=== PATIENT | female | born 1980 | race Caucasian/White ===

== ENCOUNTER 2016-11-03 17:17 | Outpatient (CLI) | payer OTHER ==
[~2016-11-03] VITALS: Ht 157.5 cm; Wt 125.1 kg
[2016-11-03 17:45] VITALS: Ht 157.5 cm; Wt 125.1 kg
[2016-11-03] MEDS ORDERED: PRENAT PO (17:47)
--- NOTE | 2016-11-03 20:53 | RADRPT ---
PROCEDURE: OB ultrasound CLINICAL INDICATION: . OB ultrasound with fluid volume assessment. Rupture of membranes TECHNIQUE: Sonographic evaluation to assess the amniotic fluid volume was performed. Transabdomin al imaging of the gravid uterus was performed. COMPARISON: 10/15/2016 FINDINGS: The amniotic fluid index equals approximately 13.1 cm. heart rate: 148 Beats per minute. Presentation: Breech Placenta posterior without evidence of abruption or previa. IMPRESSION: Amniotic fluid index equals 15.1 cm. Breech presentation. RPTAT: AADD .Sameer Lezama MD, MD Date Time Electronically viewed and signed by .Sameer Lezama MD, MD on 11/03/2016 20:52 .B/
[2016-11-03] MEDS ORDERED: ACETAMINOPHEN 325 MG TAB PO ONE (21:00)
[2016-11-03 21:01] LABS: ADD SCAN DIFF NO
[2016-11-03 21:25] LABS: HEMATOCRIT 36.4 % (37.0-47.0); HEMOGLOBIN 12.7 g/dl (12.0-16.0); MEAN CORPUSCULAR HEMOGLOBIN 29.5 pg (29.0-33.0); MEAN CORPUSCULAR HGB CONC 34.9 g/dl (32.0-37.0); MEAN CORPUSCULAR VOLUME 84.5 fl (82.0-101.0); MEAN PLATELET VOLUME 9.9 fl (7.4-10.4); PLATELET COUNT 240 10^3/UL (140-415); RED BLOOD COUNT 4.31 10^6/ul (4.20-5.40); RED CELL DISTRIBUTION WIDTH 13.1 % (11.5-14.5); WHITE BLOOD COUNT 9.6 10^3/ul (4.8-10.8)
[2016-11-03 22:01] LABS: EOSINOPHILS # 0.1 10^3/ul (0.0-0.5); LYMPHOCYTES # 2.7 10^3/ul (0.8-2.9); MONOCYTE # 0.5 10^3/ul (0.3-0.9); NEUTROPHIL # 6.2 10^3/ul (1.6-7.5)
[2016-11-03 22:02] LABS: PLATELET ESTIMATE PLT APPEAR ADEQUATE
[2016-11-03 22:14] LABS: ADD UMIC YES; URINE BILIRUBIN (Dip) NEGATIVE (NEGATIVE); URINE BLOOD (Dip) 1+ (NEGATIVE); URINE COLOR YELLOW (YELLOW); URINE GLUCOSE (Dip) NEGATIVE (NEGATIVE); URINE KETONES (Dip) TRACE (NEGATIVE); URINE LEUKOCYTE ESTERASE (Dip) TRACE (NEGATIVE); URINE NITRITE (Dip) NEGATIVE (NEGATIVE); URINE TOTAL PROTEIN (Dip) NEGATIVE (NEGATIVE); URINE UROBILINOGEN (Dip) 0.2 E.U./dL (0.1-1.0)
[2016-11-03 22:28] LABS: BACTERIA,URINE RARE; SQUAMOUS EPITHELIAL CELL,UR MODERATE; URIC ACID CRYSTALS,URINE MODERATE; URINE RBCS 0-2 /HPF (0)
--- NOTE | 2016-11-03 23:45 | PN ---
Triage Information Date/Time 11/03/2016 Weeks of Gestation 36-year-old with IUP at 25 weeks and 3 days presented with complaint of abdominal pain. She feels general achy pain in the mid abdomen. Also reports constipation for the past 2 days since abdominal pain started. She reports some leaking of fluid throughout the . She feels that she urinates. She had been tested multiple times and was told that it is not amniotic fluid. She denies any decreased movement or vaginal bleeding. She also complaining of some vaginal discharge with itching : 6 Para: 4 Diabetes: none Hypertention: none Additional information Obese Objective Exam General appearance: Alert and oriented 4 appears to be in mild distress Abdomen: Soft, gravid, fundal height consistent with gestational age. Nontender , no rebound tenderness, no CVA tenderness, no guarding, no rigidity NST: Category 1 Sterile speculum examination: Some whitish vaginal discharge consistent with candidal, no pooling, nitrazine negative, R OM test negative JOZEF: Adequate Results/Medications Result Diagram: 11/03/162049 Results 24 hrs Laboratory Tests Test 11/03/16 19:00 11/03/16 20:40 11/03/16 20:50 Urine Color YELLOW Urine Clarity SLIGHTLY CLOUDY Urine pH 5.5 Urine Specific [place] >=1.030 H Urine Ketones TRACE H Urine Nitrite NEGATIVE Urine Bilirubin NEGATIVE Urine Urobilinogen 0.2 E.U./dL Urine Leukocyte Esterase TRACE H Urine Microscopic RBC 0-2 Urine Microscopic WBC 2-5 Urine Squamous Epithelial Cells MODERATE Urine Uric Acid Crystals MODERATE Urine Bacteria RARE Urine Hemoglobin 1+ H Urine Glucose NEGATIVE Urine Total Protein NEGATIVE Membranes Rupture NEGATIVE White Blood Count 9.6 Red Blood Count 4.31 Hemoglobin 12.7 Hematocrit 36.4 L Mean Corpuscular Volume 84.5 Mean Corpuscular Hemoglobin 29.5 Mean Corpuscular Hemoglobin Concent 34.9 Red Cell Distribution Width 13.1 Platelet Count 240 Mean Platelet Volume 9.9 Neutrophils % 65.0 Band Neutrophils % 1.0 Lymphocytes % 28.0 Monocytes % 5.0 Eosinophils % 1.0 Neutrophils # 6.2 Lymphocytes # 2.7 Monocytes # 0.5 Eosinophils # 0.1 Platelet Estimate PLT APPEAR ADEQUATE Imaging Results PROCEDURE: OB ultrasound CLINICAL INDICATION: . OB ultrasound with fluid volume assessment. Rupture of membranes TECHNIQUE: Sonographic evaluation to assess the amniotic fluid volume was performed. Transabdominal imaging of the gravid uterus was performed. COMPARISON: 10/15/2016 FINDINGS: The amniotic fluid index equals approximately 13.1 cm. heart rate: 148 Beats per minute. Presentation: Breech Placenta posterior without evidence of abruption or previa. IMPRESSION: Amniotic fluid index equals 15.1 cm. Breech presentation. Assessment/Plan IUP at 25 weeks and 3 days Constipation and generalized abdominal pain Likely musculoskeletal versus GI related NST appropriate for gestational age. No contraction the monitor. Vaginal itching and discharge consistent with Michelle No evidence of PPROM DC home Clotrimazole vaginal cream nightly for 7 days labor precaution and kick counts Adequate p.o. hydration Stool softener Follow-up with OB office in a couple days after discharge from the hospital Return to triage as needed recurrence of the symptoms are worsening or any other concern BRIE TIRADO MD Nov 03, 2016 23:45
--- NOTE | 2016-11-04 01:30 | TRIAGE ---
OB Triage Datetime Report Generated by CPN: 11/04/2016 01:29 Datetime: 11/03/2016 20:08 Amniotic Fluid Amount: None Amniotic Fluid Odor: None Pool: Negative Nitrazine: Negative Datetime: 11/03/2016 19:45 Stage of : OB Triage Labor Evaluation Frequency: 0 Monitor Mode: External Pattern: Normal: <= 5 Contractions in 10 Minutes Resting Tone [place]: Relaxed Pain Assessment Pain Scale: 4 Pain Presence: Constant Pain Type: Ache Pain Location: Abdomen Datetime: 11/03/2016 19:14 Stage of : OB Triage Maternal Assessment Level of Consciousness: Fully Conscious Headache: Denies Blurred Vision: No Nausea/Vomiting: Denies RUQ Epigastric Pain: Denies Facial Edema: None Monitor Mode: External Resting Tone [place]: Relaxed Datetime: 11/03/2016 17:48 EGA: 25.3 Datetime: 11/03/2016 17:47 Heart Rate FHR Baseline Rate: 145 Monitor Mode: External US FHR Baseline Changes: No Baseline Change Variability: Moderate 6-25 bpm Accelerations: 15X15 Decelerations: None Category: Category I Pain Assessment Pain Scale: 2 Pain Presence: Intermittent Pain Type: Ache Pain Location: Abdomen Pain Relief Measures: Comfort Measures Datetime: 11/03/2016 17:41 Stage of : OB Triage Assessment Type: Triage Maternal Assessment Level of Consciousness: Fully Conscious DTR's/Clonus: DTRs 2+; No Clonus Headache: Denies Blurred Vision: No Respiratory Effort: Unlabored; Regular Rhythm; Equal Expansion Breath Sounds, Left: Clear and Equal Breath Sounds, Right: Clear and Equal Nausea/Vomiting: Denies RUQ Epigastric Pain: Denies Lower Extremities Edema: Bilateral Lower Extremities Degree: 1+ Upper Extremities Edema: None Degree: None Facial Edema: None Temperature Route: Oral Fall Risk Assessment History of Falling: (0) No Secondary Diagnosis: (0) No Ambulatory Aid: (0) Bedrest/Nurse Assist IV Therapy: (0) No Gait: (0) Normal/Bedrest/Immobile Mental Status: (0) Oriented to Own Ability Fall Score: 0 Fall Risk Score Definition: No Risk: No action required Monitor Mode: External Heart Rate FHR Baseline Rate: 145 Monitor Mode: External US FHR Baseline Changes: No Baseline Change Variability: Moderate 6-25 bpm Accelerations: 15X15 Decelerations: None Category: Category I Pain Presence: None/Denies Vaginal Exam Membrane Status: Intact Datetime: 11/03/2016 17:25 Time of Arrival: 11/03/2016 17:25 Arrived By: Ambulatory Arrived From: Home Chief Complaint: ABD PAIN Movement: Present Contractions: Denies/Absent Rupture of Membranes: Denies Vaginal Bleeding: None Vaginal Discharge: Denies Recent Sexual Intercouse: Denies Abdominal Trauma: Not Applicable Patient Complaints: None Time Provider Notified: 11/03/2016 19:45 Provider Notified: Dr Frank
== END 2016-11-03 22:58 | disposition home or self-care (01) ==
LOC: OBT 17:17 → L-D 17:17 → OBT 22:58
PROVIDERS: ATTEND Obstetrics & Gynecology
DX: O26.892 Other specified pregnancy related conditions, second trimester (principal); R10.9 Unspecified abdominal pain
CPT/HCPCS: 76815; 81001; 84112; 85025; Z7610; G0463

== ENCOUNTER 2017-01-09 12:48 | Outpatient (CLI) | payer OTHER ==
[~2017-01-09] VITALS: Ht 160 cm; Wt 127.1 kg
[~2017-01-09 12:48] MED LIST: PRENAT PO
[2017-01-09 13:09] VITALS: Ht 160 cm; Wt 127.1 kg
[2017-01-09] MEDS ORDERED: FER325 PO (13:09)
[2017-01-09] MEDS ORDERED: GLYB5TAB3 PO (13:09)
[2017-01-09] MEDS ORDERED: GLYB2.5T2 PO (13:09)
[2017-01-09 13:10] VITALS: BP 129/74; PULSE 92; RESP 18
--- NOTE | 2017-01-09 15:44 | RADRPT ---
PROCEDURE: US OB. CLINICAL INDICATION: Contractions TECHNIQUE: Multiple sonographic images of the pelvis were obtained. The images were reviewed on a PACS workstation. COMPARISON: 01/06/2017 FINDINGS: There is a single viable intrauterine gestation. Cardiac activity is present with 05/1943 beats per minute. There is a vertex presentation. Measurements were made in order to determine age. The results are as follows: BPD =9.15 cm HC =32.18 cm AC =32.48 cm FL =7.22 cm. Estimated gestational age of approximately 36 weeks 5 days. The estimated date of delivery is 02/01/2017. The EFW = 2987 g plus or minus 447 g . The placenta is posterior, maternal right and grade 1. There is no evidence for an abruption or plac enta previa. There are no adnexal masses.. IMPRESSION: Single viable intrauterine gestation of approximately 36 weeks 5 days. The estimated date of delive ry is 02/01/2017 . RPTAT: HH .Emelyn Avery MD, MD Date Time Electronically viewed and signed by .Emelyn Avery MD, on 01/09/2017 15:44 .M/
--- NOTE | 2017-01-09 15:45 | RADRPT ---
PROCEDURE: US OB. CLINICAL INDICATION: Contractions TECHNIQUE: Pelvic ultrasound performed for biophysical profile. COMPARISON: None FINDINGS: Single intrauterine gestation present with heart rate at 148 beats per minute. Presentation is ceph alic. Placenta is posterior maternal right, grade 1. Biophysical profile score is 8/8 (breathing=2 , movement=2, tone =2, fluid volume=2). Amniotic fluid volume is within normal limits, with JOZEF = 1 0.6 cm. IMPRESSION: Biophysical profile score 8/8. JOZEF 10.6 cm RPTAT: HSM .Emelyn Avery MD, MD Date Time Electronically viewed and signed by .Emelyn Avery MD, on 01/09/2017 15:45 .M/
--- NOTE | 2017-01-09 16:05 | PN ---
Triage Information Date/Time Reason for visit: Uterine contractions Weeks of Gestation 36+ /Para 6/3 Diabetes: none Hypertention: none Objective Vital Signs Date Time Temp Pulse Resp B/P Pulse Ox O2 Delivery O2 Flow Rate FiO2 01/09/17 13:10 97.8 92 18 129/74 Room Air Heart Rate: 140's Contractions: >10 Minutes Apart Exam L/C/p Assessment/Plan BPP 12/28 No cervical changes -->discharged with precautions --->She is offered to be monitored for a while longer but she preferrs to go home and return in case of increased CTXs EZEQUIEL RUIZ M.D. Jan 09, 2017 16:05
--- NOTE | 2017-01-10 06:25 | TRIAGE ---
OB Triage Datetime Report Generated by CPN: 01/09/2017 16:08 Datetime: 01/09/2017 15:55 Stage of : OB Triage Maternal Assessment Level of Consciousness: Fully Conscious Labor Evaluation Frequency: NONE Monitor Mode: External Resting Tone [place]: Relaxed Heart Rate FHR Baseline Rate: 145 Monitor Mode: External US Variability: Moderate 6-25 bpm Accelerations: 15X15 Decelerations: None Pain Assessment Pain Scale: 7 Pain Presence: Intermittent Pain Type: Cramping Pain Location: Abdomen Pain Goal: 3 Pain Relief Measures: Comfort Measures Membrane Status: Intact Vaginal Bleeding: None Datetime: 01/09/2017 15:22 Vaginal Exam Dilatation (cms): 0.0 Datetime: 01/09/2017 15:00 Stage of : OB Triage Maternal Assessment Level of Consciousness: Fully Conscious Labor Evaluation Frequency: 2uc/hr Monitor Mode: External Duration (sec)2399: 50-70 Quality: Mild Resting Tone [place]: Relaxed Heart Rate FHR Baseline Rate: 145 Monitor Mode: External US Variability: Moderate 6-25 bpm Accelerations: 15X15 Decelerations: None Pain Assessment Pain Scale: 7 Pain Presence: Intermittent Pain Type: Cramping Pain Location: Abdomen Pain Goal: 3 Pain Relief Measures: Comfort Measures Membrane Status: Intact Vaginal Bleeding: None Datetime: 01/09/2017 14:33 Comments: US COMPLETE Datetime: 01/09/2017 14:13 Comments: OFF FOR US Datetime: 01/09/2017 14:10 Stage of : OB Triage Labor Evaluation Frequency: NONE Monitor Mode: External Heart Rate FHR Baseline Rate: 145 Monitor Mode: External US Variability: Moderate 6-25 bpm Accelerations: 15X15 Decelerations: None Category: Category I Membrane Status: Intact Datetime: 01/09/2017 14:00 Stage of : OB Triage Maternal Assessment Level of Consciousness: Fully Conscious Labor Evaluation Frequency: NONE Monitor Mode: External Resting Tone [place]: Relaxed Heart Rate FHR Baseline Rate: 145 Monitor Mode: External US Variability: Moderate 6-25 bpm Accelerations: 15X15 Decelerations: None Category: Category I Pain Assessment Pain Scale: 7 Pain Presence: Intermittent Pain Type: Cramping Pain Location: Abdomen Pain Goal: 3 Pain Relief Measures: Comfort Measures Membrane Status: Intact Vaginal Bleeding: None Datetime: 01/09/2017 13:01 Assessment Type: Triage Maternal Assessment Level of Consciousness: Fully Conscious DTR's/Clonus: DTRs 2+; No Clonus Headache: Denies Blurred Vision: No Respiratory Effort: Unlabored; Regular Rhythm; Equal Expansion Breath Sounds, Left: Clear and Equal Breath Sounds, Right: Clear and Equal Nausea/Vomiting: Denies RUQ Epigastric Pain: Denies Lower Extremities Edema: Bilateral Lower Extremities Degree: 1+ Upper Extremities Edema: None Degree: None Facial Edema: None Fall Risk Assessment History of Falling: (0) No Secondary Diagnosis: (0) No Ambulatory Aid: (0) Bedrest/Nurse Assist IV Therapy: (0) No Gait: (0) Normal/Bedrest/Immobile Mental Status: (0) Oriented to Own Ability Fall Score: 0 Fall Risk Score Definition: No Risk: No action required Datetime: 01/09/2017 13:00 Time of Arrival: 01/09/2017 12:40 EGA: 35.1 Arrived By: Ambulatory Arrived From: Home Chief Complaint: PT HERE C/O UC'S SINCE 0900 Movement: Present Contractions: Irregular Rupture of Membranes: Denies Vaginal Bleeding: None Vaginal Discharge: Denies Recent Sexual Intercouse: Denies Abdominal Trauma: Not Applicable Patient Complaints: Contractions; Cramping; Back Pain Time Provider Notified: 01/09/2017 13:10 Provider Notified: MARIO Initial Plan: NST/EFW/BPP Datetime: 01/09/2017 12:59 Monitor Mode: External Monitor Mode: External US Datetime: 01/03/2017 09:46 EGA: 25.4 Datetime: 11/03/2016 22:51 Stage of : OB Triage Monitor Mode: External Pattern: Normal: <= 5 Contractions in 10 Minutes Resting Tone [place]: Relaxed Pain Presence: None/Denies Pain Type: N/A Datetime: 11/03/2016 22:05 Stage of : OB Triage Labor Evaluation Frequency: 0 Monitor Mode: External Pattern: Normal: <= 5 Contractions in 10 Minutes Resting Tone [place]: Relaxed Pain Assessment Pain Scale: 0 Pain Presence: None/Denies Pain Type: N/A Datetime: 11/03/2016 17:48 EGA: 25.3 Datetime: 11/03/2016 17:41 Fall Score: 0 Fall Risk Score Definition: No Risk: No action required
== END 2017-01-09 16:15 | disposition home or self-care (01) ==
LOC: OBT 12:48 → L-D 12:58 → OBT 16:15
PROVIDERS: ATTEND Obstetrics & Gynecology
DX: O47.1 False labor at or after 37 completed weeks of gestation (principal); O26.893 Other specified pregnancy related conditions, third trimester; R10.9 Unspecified abdominal pain; Z3A.36 36 weeks gestation of pregnancy
CPT/HCPCS: 76815; 76818; Z7500; G0463

== ENCOUNTER 2017-01-19 11:15 | Inpatient (IN) | payer OTHER ==
[~2017-01-19] VITALS: Ht 160 cm; Wt 128.6 kg
[~2017-01-19 11:15] MED LIST changes: +FER325 PO; +GLYB2.5T2 PO; +GLYB5TAB3 PO
[2017-01-19 12:33] VITALS: BP 132/81; PULSE 87; RESP 18; Ht 160 cm; Wt 128.6 kg
[2017-01-19 12:36] LABS: BASOPHILS % 0.3 % (0.0-2.0); EOSINOPHILS # 0.1 10^3/ul (0.0-0.5); EOSINOPHILS % 0.6 % (0.0-7.0); HEMATOCRIT 39.2 % (37.0-47.0); HEMOGLOBIN 13.3 g/dl (12.0-16.0); LYMPHOCYTES # 1.5 10^3/ul (0.8-2.9); LYMPHOCYTES % 15.5 % (15.0-51.0); MEAN CORPUSCULAR HEMOGLOBIN 28.9 pg (29.0-33.0); MEAN CORPUSCULAR HGB CONC 33.9 g/dl (32.0-37.0); MEAN PLATELET VOLUME 9.7 fl (7.4-10.4); MONOCYTE # 0.7 10^3/ul (0.3-0.9); MONOCYTES % 6.7 % (0.0-11.0); NEUTROPHILS % 75.8 % (39.0-77.0); PLATELET COUNT 271 10^3/UL (140-415); RED BLOOD COUNT 4.61 10^6/ul (4.20-5.40); RED CELL DISTRIBUTION WIDTH 13.2 % (11.5-14.5); WHITE BLOOD COUNT 9.7 10^3/ul (4.8-10.8)
[2017-01-19 12:54] LABS: ALBUMIN 3.1 g/dl (3.3-4.9); ALBUMIN/GLOBULIN RATIO 0.93; BILIRUBIN,INDIRECT 0.1 mg/dl (0-1.1); BILIRUBIN,TOTAL 0.1 mg/dl (0.2-1.3); CALCIUM 8.7 mg/dl (8.4-10.2); CREATININE 0.57 mg/dl (0.44-1.00); POTASSIUM 3.9 mmol/L (3.5-5.1); TOTAL PROTEIN 6.4 g/dl (6.1-8.1); URIC ACID 4.6 mg/dl (3.1-7.9)
--- NOTE | 2017-01-19 12:57 | RADRPT ---
PROCEDURE: OB ultrasound for biophysical profile CLINICAL INDICATION: Preeclampsia TECHNIQUE: Multiple sonographic images of the pelvis were obtained. Transabdominal view of the gr avid uterus are available for review. The images were reviewed on a PACS workstation. COMPARISON: OB ultrasound 01/09/2017 FINDINGS: breathing movement = 2/2 tone = 2/2 motion = 2/2 JOZEF = 2/2 JOZEF = 10.3 cm Single live intrauterine with cardiac activity. heart rate equals 144 beats p er minute. Presentation is cephalic. The placenta is posterior grade 1. IMPRESSION: 1. Single viable intrauterine gestation. 2. Biophysical profile = 8/8. 3. JOZEF = 10.3 cm. RPTAT: AA .Wiley Alford MD, MD Date Time Electronically viewed and signed by .Wiley Alford MD, MD on 01/19/2017 12:57 .B/
--- NOTE | 2017-01-19 12:59 | RADRPT ---
PROCEDURE: US OB - Limited weight. CLINICAL INDICATION: Preeclampsia TECHNIQUE: Multiple sonographic images of the pelvis were obtained. Transabdominal imaging only w as performed. The images were reviewed on a PACS workstation. COMPARISON: No prior studies are available for comparison. FINDINGS: There is a single viable intrauterine gestation. Cardiac activity is present with 139 beats per min [place]. There is a cephalic presentation. Measurements were made in order to determine age. The results are as follows: BPD = 8.79 cm HC = 33.53 cm AC = 33.82 cm FL = 6.92 .cm Estimated gestational age of approximately 36 weeks 6 days +/ - 2 weeks 4 days The estimated date of delivery is 02/10/2017. The EFW = 3092 g +/- 464 g (69%). The placenta is anterior. IMPRESSION: 1. Single viable intrauterine gestation of approximately 36 weeks 6 days gestation with estimated d ate of delivery of 02/10/2017 by ultrasound evaluation. 2. The estimated weight is 3092 g (69%) . RPTAT: AA .Wiley Alford MD, MD Date Time Electronically viewed and signed by .Wiley Alford MD, MD on 01/19/2017 12:59 .B/
[2017-01-19 13:34] LABS: ADD UMIC YES; UR ASCORBIC ACID 40 mg/dL (NEGATIVE); UR BACTERIA FEW /HPF (NONE SEEN); UR BILIRUBIN (Dip) NEGATIVE (NEGATIVE); UR BLOOD (Dip) NEGATIVE (NEGATIVE); UR CLARITY SLIGHTLY CLOUDY (CLEAR); UR COLOR YELLOW (YELLOW); UR GLUCOSE (Dip) NEGATIVE (NEGATIVE); UR KETONES (Dip) TRACE mg/dL (NEGATIVE); UR LEUKOCYTE ESTERASE (Dip) 2+ Leu/ul (NEGATIVE); UR MUCUS FEW /HPF (NONE SEEN); UR NITRITE (Dip) NEGATIVE (NEGATIVE); UR RBC 1 /HPF (0-5); UR SPECIFIC GRAVITY (Dip) 1.024 (1.003-1.030); UR SQUAMOUS EPITHELIAL CELL MODERATE /HPF (FEW); UR TOTAL PROTEIN (Dip) 1+ mg/dl (NEGATIVE); UR UROBILINOGEN (Dip) 1+ mg/dL (NEGATIVE)
[2017-01-19] MEDS ORDERED: LACTATED RINGER'S 1,000 ML IV PRN (15:49)
[2017-01-19] MEDS ORDERED: MAGNESIUM SULFATE 4 GM/100 ML 100 ML IVPB ONE (16:00)
[2017-01-19] MEDS ORDERED: BUTORPHANOL 2 MG INJ IV PRN (16:00)
[2017-01-19] MEDS ORDERED: IBUPROFEN 600 MG TAB PO PRN (16:00)
[2017-01-19] MEDS ORDERED: MAGNESIUM SULFATE 4 GM/100 ML 100 ML IV ONE (16:00)
[2017-01-19] MEDS ORDERED: OXYTOCIN 30 UNITS/LR 500 ML IV PRN (16:00)
[2017-01-19] MEDS ORDERED: MISOPROSTOL 200 MCG TAB PR PRN (16:00)
[2017-01-19] MEDS ORDERED: LIDOCAINE 1% (MPF) 30 ML INJ INJ PRN (16:00)
[2017-01-19] MEDS ORDERED: METHYLERGONOVINE 0.2 MG INJ IM PRN (16:00)
[2017-01-19] MEDS ORDERED: CARBOPROST 250 MCG INJ IM PRN (16:00)
[2017-01-19] MEDS ORDERED: OXYTOCIN 30 UNITS/LR 500 ML IV SCH ×2 (16:00)
[2017-01-19] MEDS ORDERED: GLUCOSE GEL 15 GRAM TUBE PO PRN ×2 (16:30)
[2017-01-19] MEDS ORDERED: GLUCOSE GEL 15 GRAM TUBE BUCCAL PRN (16:30)
[2017-01-19] MEDS ORDERED: DEXTROSE 50% 50 ML SYRINGE IV PRN ×2 (16:30)
[2017-01-19] MEDS ORDERED: GLUCAGON 1 MG INJ IM PRN (16:30)
[2017-01-19] MEDS: LACTATED RINGER'S 1,000 ML IV SCH (16:40)
[2017-01-19] MEDS: BETAMET NA PHOS/AC(6 MG/ML) 5ML INJ IM SCH (16:44)
--- NOTE | 2017-01-19 16:47 | HP ---
Date/Time of Note Date/Time of Note DATE: 01/19/17 TIME: 16:41 OB - History Hx of Present Free Text/Dictation Jan 19, 2017 Chief Complaint: Occasional headache and on and off blurred vision Estimated Due Date: Feb 13, 2017 : 6 Para: 4 Care: Good Care Other Concerns: Episodes of headache and blurred vision. On and off during Patient also had a history of migraine headache. Reports her current headache is different than usual migraine headache that she has She also has a history of GDM A2 on glyburide 2.5 mg daily dose Pressure is 130s over 80s Past Family/Social History * Past Medical, Surgical, Family and Obstetric Histories reviewed from chart. OB Admission Exam Vital Signs Vital Signs Vital Signs Date Time Temp Pulse Resp B/P Pulse Ox O2 Delivery O2 Flow Rate FiO2 01/19/17 12:33 97.9 87 18 132/81 Room Air Physical Exam HEENT: WNL Lungs: Clear Abdomen: WNL Extremities: Edema (1-2+ lower extremities with strict edema) Reflexes: Normal Last 72 hours Lab Results CBC & BMP 01/19/17 11:55 Liver Function Test 01/19/17 11:55 Alanine Aminotransferase (ALT/SGPT) 61 Albumin 3.1 L Alkaline Phosphatase 166 H Aspartate Amino Transf (AST/SGOT) 32 Direct Bilirubin 0.00 Total Protein 6.4 OB Assessment/Plan Other Assessment: IUP at 36 weeks and 3 days Headache and blurred vision, on and off Patient is in the range of 120s 130s over 70s-90s Patient also with history of GDM A2. 2.5 mg glyburide We will admit the patient for observation and serial blood pressure check [facility] panel 24 hour urine protein can start for collection 2 to neurological symptoms as well as borderline hypertension and the patient's risk factor for preeclampsia including gestational diabetes patient will be started on magnesium while above observation and assessment being performed. Consider steroid in case of early delivery < 37 weeks and [facility] Perinatology consultation BRIE TIRADO MD Jan 19, 2017 16:47
[2017-01-19] MEDS: MAGNESIUM SULFATE 20 GM/500 ML 500 ML IV SCH (17:07)
--- NOTE | 2017-01-19 17:09 | TRIAGE ---
OB Triage Datetime Report Generated by CPN: 01/19/2017 17:09 Datetime: 01/19/2017 16:22 Assessment Type: Admission Assessment Vaginal Bleeding: None Maternal Assessment Level of Consciousness: Fully Conscious DTR's/Clonus: DTRs 2+; No Clonus Headache: Denies Blurred Vision: No Respiratory Effort: Unlabored; Regular Rhythm; Equal Expansion Breath Sounds, Left: Clear and Equal Breath Sounds, Right: Clear and Equal Nausea/Vomiting: Denies RUQ Epigastric Pain: Denies Lower Extremities Edema: Bilateral Lower Extremities Degree: 2+ Upper Extremities Edema: None Degree: None Facial Edema: None Fall Risk Assessment History of Falling: (0) No Secondary Diagnosis: (0) No Ambulatory Aid: (0) Bedrest/Nurse Assist IV Therapy: (0) No Gait: (0) Normal/Bedrest/Immobile Mental Status: (0) Oriented to Own Ability Fall Score: 0 Fall Risk Score Definition: No Risk: No action required Labor Evaluation Frequency: IRREGULAR Duration (sec)2399: 30-40 Quality: Mild Pattern: Normal: <= 5 Contractions in 10 Minutes Resting Tone [place]: Relaxed Heart Rate FHR Baseline Rate: 130 Variability: Moderate 6-25 bpm Accelerations: 15X15 Decelerations: None Category: Category I Pain Assessment Pain Scale: 5 Pain Presence: Intermittent Pain Type: Contraction Pain Location: Abdomen Pain Goal: 3 Vaginal Exam Membrane Status: Intact Datetime: 01/19/2017 12:29 Comments: NST DONE Datetime: 01/19/2017 11:10 Time of Arrival: 01/19/2017 11:07 EGA: 36.3 Arrived By: Ambulatory Arrived From: [facility] Chief Complaint: Elevated BPs in clinic Movement: Present Contractions: Denies/Absent Rupture of Membranes: Denies Vaginal Discharge: Denies Recent Sexual Intercouse: Denies Abdominal Trauma: Not Applicable Patient Complaints: Headache; Visual Disturbance; Epigastric Pain Time Provider Notified: 01/19/2017 12:13 Provider Notified: Thom Initial Plan: NST, BPP, EFW, PIH panel: Uric Acid, CMP, CBC, UA Datetime: 01/09/2017 13:01 Fall Score: 0 Fall Risk Score Definition: No Risk: No action required Datetime: 01/09/2017 13:00 EGA: 35.0 Datetime: 01/03/2017 09:46 EGA: 25.3 Datetime: 11/03/2016 17:48 EGA: 25.3 Datetime: 11/03/2016 17:41 Fall Score: 0 Fall Risk Score Definition: No Risk: No action required
[2017-01-19 17:12] LABS: BASOPHILS % 0.3 % (0.0-2.0); EOSINOPHILS # 0.1 10^3/ul (0.0-0.5); EOSINOPHILS % 0.5 % (0.0-7.0); HEMATOCRIT 38.5 % (37.0-47.0); HEMOGLOBIN 13.4 g/dl (12.0-16.0); LYMPHOCYTES # 1.7 10^3/ul (0.8-2.9); LYMPHOCYTES % 18.4 % (15.0-51.0); MEAN CORPUSCULAR HEMOGLOBIN 29.7 pg (29.0-33.0); MEAN CORPUSCULAR HGB CONC 34.8 g/dl (32.0-37.0); MEAN CORPUSCULAR VOLUME 85.4 fl (82.0-101.0); MEAN PLATELET VOLUME 9.8 fl (7.4-10.4); MONOCYTE # 0.6 10^3/ul (0.3-0.9); MONOCYTES % 6.2 % (0.0-11.0); NEUTROPHILS % 73.5 % (39.0-77.0); PLATELET COUNT 265 10^3/UL (140-415); RED BLOOD COUNT 4.51 10^6/ul (4.20-5.40); RED CELL DISTRIBUTION WIDTH 13.2 % (11.5-14.5); WHITE BLOOD COUNT 9.4 10^3/ul (4.8-10.8)
--- NOTE | 2017-01-19 17:20 | TRIAGE ---
OB Triage Datetime Report Generated by CPN: 01/19/2017 17:20 Datetime: 01/19/2017 17:18 Comments: SITTING UP FOR DINNER Datetime: 01/19/2017 16:22 Fall Score: 0 Fall Risk Score Definition: No Risk: No action required Datetime: 01/19/2017 15:18 Stage of : Labor Datetime: 01/19/2017 12:14 Monitor Mode: External Resting Tone [place]: Relaxed FHR Baseline Rate: 135 Monitor Mode: External US FHR Baseline Changes: No Baseline Change Variability: Moderate 6-25 bpm Accelerations: 15X15 Decelerations: None Category: Category I Pain Scale: 3 Pain Presence: Intermittent Pain Type: Ache Pain Location: Head Pain Goal: 2 Pain Relief Measures: Comfort Measures Datetime: 01/19/2017 11:25 Assessment Type: Triage Level of Consciousness: Fully Conscious DTR's/Clonus: DTRs 2+; No Clonus Headache: Denies Blurred Vision: No Respiratory Effort: Unlabored; Regular Rhythm; Equal Expansion Breath Sounds, Left: Clear and Equal Breath Sounds, Right: Clear and Equal Nausea/Vomiting: Denies RUQ Epigastric Pain: Denies Lower Extremities Edema: Bilateral Lower Extremities Degree: 2+ Upper Extremities Edema: Bilateral Upper Extremities Degree: 1+ Facial Edema: None History of Falling: (0) No Secondary Diagnosis: (0) No Ambulatory Aid: (0) Bedrest/Nurse Assist IV Therapy: (0) No Gait: (0) Normal/Bedrest/Immobile Mental Status: (0) Oriented to Own Ability Fall Score: 0 Fall Risk Score Definition: No Risk: No action required Datetime: 01/19/2017 11:23 Stage of : OB Triage Datetime: 01/19/2017 11:10 EGA: 36.3
[2017-01-19 17:29] LABS: INR 0.99; PROTIME 13.1 Sec (12.2-14.2)
[2017-01-19 17:30] LABS: PARTIAL THROMBOPLASTIN TIME 30.9 Sec (25.0-35.0)
[2017-01-19] MEDS ORDERED: glyBURIDE 2.5 MG TAB PO SCH (17:35)
[2017-01-19] MEDS: ACCU-CHEK XX SCH (19:35)
[2017-01-19] MEDS ORDERED: glyBURIDE 5 MG TAB PO SCH (21:00)
[2017-01-19] MEDS: ACETAMINOPHEN 325 MG TAB PO PRN (21:19)
[2017-01-20] MEDS: INSULIN ASPART [NOVOLOG] 3 ML PEN SC SCH ×2 (01:00→05:00)
[2017-01-20 01:13] LABS: BASOPHILS % 0.3 % (0.0-2.0); EOSINOPHILS % 0.1 % (0.0-7.0); HEMATOCRIT 39.2 % (37.0-47.0); HEMOGLOBIN 13.6 g/dl (12.0-16.0); LYMPHOCYTES % 9.4 % (15.0-51.0); MEAN CORPUSCULAR HEMOGLOBIN 29.5 pg (29.0-33.0); MEAN CORPUSCULAR HGB CONC 34.7 g/dl (32.0-37.0); MEAN PLATELET VOLUME 9.6 fl (7.4-10.4); MONOCYTE # 0.2 10^3/ul (0.3-0.9); MONOCYTES % 2.1 % (0.0-11.0); NEUTROPHILS % 86.6 % (39.0-77.0); PLATELET COUNT 284 10^3/UL (140-415); RED BLOOD COUNT 4.61 10^6/ul (4.20-5.40); RED CELL DISTRIBUTION WIDTH 13.1 % (11.5-14.5); WHITE BLOOD COUNT 10.6 10^3/ul (4.8-10.8)
[2017-01-20 01:30] LABS: ALBUMIN 3.2 g/dl (3.3-4.9); ALBUMIN/GLOBULIN RATIO 0.86; BILIRUBIN,INDIRECT 0.3 mg/dl (0-1.1); BILIRUBIN,TOTAL 0.3 mg/dl (0.2-1.3); CALCIUM 8.4 mg/dl (8.4-10.2); CREATININE 0.5 mg/dl (0.44-1.00); POTASSIUM 4.4 mmol/L (3.5-5.1); TOTAL PROTEIN 6.9 g/dl (6.1-8.1); URIC ACID 5.6 mg/dl (3.1-7.9)
[2017-01-20] MEDS: ACETAMINOPHEN 325 MG TAB PO PRN (02:11)
[2017-01-20] MEDS: MAGNESIUM SULFATE 20 GM/500 ML 500 ML IV SCH ×3 (03:16→23:40)
[2017-01-20] MEDS: LACTATED RINGER'S 1,000 ML IV SCH ×2 (04:06→17:44)
[2017-01-20] MEDS: BETAMET NA PHOS/AC(6 MG/ML) 5ML INJ IM SCH (04:52)
[2017-01-20] MEDS: ACCU-CHEK XX SCH (06:24)
--- NOTE | 2017-01-20 07:16 | ERD ---
DATE OF SERVICE: 01/19/2017 I received a call from Missy, the nurse, about the patient on my recommendations for delivery. The patient apparently presented with some elevation in the blood pressure in the moderate range, 1+ protein, bilateral lower extremity edema and also she has been complaining of severe headache for the past 2 days and also spots in the vision and epigastric pain. Therefore, recommendation is delivery secondary to severe preeclampsia. Please start magnesium sulfate, and proceed with delivery as soon as possible, and monitor input and output. Dictated By: Krupa Sinclair MD /carlton/jean /Document#: [id number]
[2017-01-20] MEDS ORDERED: FERROUS SULFATE (EC) 325 MG TAB PO SCH (09:00)
[2017-01-20] MEDS ORDERED: PRENATAL VITAMIN PO SCH (09:00)
[2017-01-20] MEDS ORDERED: OXYTOCIN 30 UNITS/LR 500 ML IV SCH (11:00)
[2017-01-20 16:58] LABS: SCRET 0.5 mg/dl (0.44-1.00)
[2017-01-20] MEDS ORDERED: DOCUSATE SODIUM 100 MG CAP PO SCH (21:00)
[2017-01-21] VITALS (9 sets, daily range): BP systolic 113–133; BP diastolic 56–72; PULSE 75–94; RESP 18
[2017-01-21] MEDS ORDERED: FAMOTIDINE 20 MG INJ IV ONE (04:00)
[2017-01-21] MEDS ORDERED: ONDANSETRON 4 MG INJ IV PRN ×3 (04:00→14:00)
[2017-01-21 04:55] LABS: BASOPHIL # 0.1 10^3/ul (0.0-0.1); BASOPHILS % 0.4 % (0.0-2.0); EOSINOPHILS % 0.1 % (0.0-7.0); HEMATOCRIT 42.8 % (37.0-47.0); LYMPHOCYTES # 1.4 10^3/ul (0.8-2.9); LYMPHOCYTES % 8.9 % (15.0-51.0); MEAN CORPUSCULAR HEMOGLOBIN 29.1 pg (29.0-33.0); MEAN CORPUSCULAR HGB CONC 32.7 g/dl (32.0-37.0); MONOCYTE # 1.1 10^3/ul (0.3-0.9); MONOCYTES % 6.8 % (0.0-11.0); NEUTROPHILS % 81.1 % (39.0-77.0); PLATELET COUNT 282 10^3/UL (140-415); RED BLOOD COUNT 4.81 10^6/ul (4.20-5.40); RED CELL DISTRIBUTION WIDTH 13.6 % (11.5-14.5); WHITE BLOOD COUNT 15.8 10^3/ul (4.8-10.8)
[2017-01-21 05:06] LABS: POSITIVE DIFF @See below
[2017-01-21] MEDS: LACTATED RINGER'S 1,000 ML IV SCH (06:34)
[2017-01-21 06:48] LABS: ALBUMIN 3.3 g/dl (3.3-4.9); ALBUMIN/GLOBULIN RATIO 1.06; BILIRUBIN,INDIRECT 0.2 mg/dl (0-1.1); BILIRUBIN,TOTAL 0.2 mg/dl (0.2-1.3); CALCIUM 7.9 mg/dl (8.4-10.2); CREATININE 0.55 mg/dl (0.44-1.00); POTASSIUM 4.8 mmol/L (3.5-5.1)
[2017-01-21 06:52] LABS: TOTAL PROTEIN 6.4 g/dl (6.1-8.1)
[2017-01-21] MEDS ORDERED: OXYTOCIN 30 UNITS/LR 500 ML BAG IV ONE (07:00)
[2017-01-21] MEDS ORDERED: CEFAZOLIN 2 GM/50 ML (PMX) 50 ML IV SCH (08:30)
[2017-01-21] MEDS ORDERED: METHYLERGONOVINE 0.2 MG INJ IM PRN ×2 (08:30→16:00)
[2017-01-21] MEDS ORDERED: CARBOPROST 250 MCG INJ IM PRN ×2 (08:30→16:00)
[2017-01-21] MEDS ORDERED: OXYTOCIN 30 UNITS/LR 500 ML IV PRN ×2 (08:30→16:00)
[2017-01-21] MEDS ORDERED: MISOPROSTOL 200 MCG TAB PR PRN ×2 (08:30→16:00)
[2017-01-21] MEDS ORDERED: ONDANSETRON 4 MG INJ IV STA (08:38)
[2017-01-21] MEDS ORDERED: CITRIC ACID/NA CITRATE 30 ML CUP PO ONE (08:38)
[2017-01-21] MEDS ORDERED: morphine SULFATE/PF (10 MG/10 ML) INJ ONE (10:56)
[2017-01-21] MEDS ORDERED: PHENYLephrine (100 MCG/ML) 5ML SYG ONE ×4 (10:57→11:40)
--- NOTE | 2017-01-21 12:26 | OPR ---
Operative Report Planned Procedure Free Text/Dictation 36 years old Italian female 6 para 3 T3 PT 0 SAB 2 IAB 0 L4 admitted to the hospital with diagnosis of -induced hypertension at 36 weeks and 5 days she was complaining of headache Blurry Vision epigastric pain she was placed on Magnesium Sulfate and underwent induction with Cervidil which was not successful and no Cervical Changes after Trial of 2 Cervical, I spoke with the patient regarding continuation of induction versus delivery considering her symptoms, pros and cons and alternatives discussed patient elected delivery and declined further induction. Procedure date Jan 21, 2017 Procedure(s) Primary for severe PIH neurological symptoms Performed by: OZZY MARTIN MD Assisting provider: OMARI SANTILLAN MD Anesthesiologist: CLARISSA MARIANO Pre-procedure diagnosis 36 weeks 5 days , diagnosed with severe PIH, declined further trial of labor and induction. Anesthesia Type: spinal Procedure Description Under satisfactory [spinal] anesthesia, the patient was prepped and draped and placed in a supine position, tilted to the left. Pfannenstiel incision was made , carried through the subcutaneous tissue. Bleeders brought under control with electrocautery. Fascia incised to the length of the incision. Rectus muscles from the fascia, divided midline. Peritoneum exposed, entered through a transverse incision. Exploration of abdomen revealed gravid uterus. Normal- appearing tubes and ovaries bladder flap was developed. Transverse incision was made in the lower segment of the uterus. Amniotic sac ruptured. [Clear] amniotic fluid noted. Live baby boy was delivered from L OT position [] Nasal oropharyngeal suction was performed. baby was handed to the team for immediate attention. placenta delivered manually intact sent to pathology. Uterine cavity was cleaned with wet sponge and drainage established. Uterus closed in 2 layers using [] Monocryl #1 in continuous fashion. Peritoneal cavity irrigated with warm saline. Sponge, needle and instrument count reported to be correct. Abdominal peritoneum closed with 0 chromic catgut continuously. Rectus muscle approximated with [2-0 chromic cat]. Fascia closed with #1 PDS cutaneous tissue approximated with few interrupted 2-0 chromic catgut skin closed N sorb. Estimated blood loss [6700]mL. Urine bag contained 200 []mL of clear urine and tolerated procedure well transferred to recovery room in good condition Post-Procedure Findings: Live Baby boy 9 and 9 baby waited 7 lbs. 2 oz. Specimen removed: No Complications: None Pt Condition post procedure: stable Physician Certification I, the undersigned physician, hereby certify that I have discussed the procedure described in this consent form with this patient (or the patient's legal field representative), including: * The risk and benefits of the procedure; * Any adverse reactions that may reasonably be expected to occur; * Any alternative efficacious methods of treatment which may be medically viable ; * The potential problems that may occur during recuperation; * Potential for blood transfusion and associated risks/benefits; and * Any research or economic interest I may have regarding this treatment. I further certify that the patient/legally responsible person was encouraged to ask question and that all questions were answered. OZZY MARTIN MD Jan 21, 2017 12:15
[2017-01-21] MEDS ORDERED: DIPHENHYDRAMINE 50 MG INJ ONE (12:38)
[2017-01-21] MEDS: MAGNESIUM SULFATE 20 GM/500 ML 500 ML IV SCH ×2 (12:46→21:06)
[2017-01-21] MEDS ORDERED: ALBUTEROL 0.083% (NEB) 2.5 MG/3 ML AMP HHN PRN (13:30)
[2017-01-21] MEDS ORDERED: FENTAnyl 50 MCG/ML VIAL IV PRN ×3 (13:30)
[2017-01-21] MEDS ORDERED: HYDROmorphONE (0.2 MG/ML) 10ML SYG IV PRN ×3 (13:30→14:00)
[2017-01-21] MEDS ORDERED: DIPHENHYDRAMINE 50 MG INJ IV PRN (13:30)
[2017-01-21] MEDS ORDERED: KETOROLAC 30 MG INJ IV PRN (13:33)
[2017-01-21] MEDS ORDERED: MEPERIDINE 25 MG INJ IV PRN (13:34)
[2017-01-21] MEDS ORDERED: METOCLOPRAMIDE 10 MG INJ IV PRN (13:35)
[2017-01-21] MEDS ORDERED: OXYCODONE/ACETAMINOPHEN (5/325) TAB PO PRN ×2 (13:36→16:00)
[2017-01-21] MEDS ORDERED: HYDROmorphONE 1 MG/ML SYG IV PRN ×2 (14:00)
[2017-01-21] MEDS ORDERED: NALOXONE (0.4 MG/ML) INJ IV PRN (14:00)
[2017-01-21] MEDS ORDERED: ZOLPIDEM 5 MG TAB PO PRN (14:00)
[2017-01-21] MEDS: DIPHENHYDRAMINE 50 MG INJ IV PRN ×2 (14:01→14:43)
[2017-01-21] MEDS: KETOROLAC 30 MG INJ IV PRN (14:43)
[2017-01-21] MEDS ORDERED: LANOLIN 7 GM TUBE TOP PRN (16:00)
[2017-01-21] MEDS ORDERED: CEFAZOLIN 1 GM/50 ML (PMX) 50 ML IVPB SCH (16:00)
[2017-01-21] MEDS ORDERED: HYDROCODONE/APAP (5/325) TAB PO PRN ×2 (16:00)
[2017-01-21] MEDS: OXYTOCIN 30 UNITS/LR 500 ML IV SCH (16:36)
[2017-01-22] VITALS (17 sets, daily range): BP systolic 106–134; BP diastolic 57–78; PULSE 68–89; RESP 16–18
[2017-01-22] MEDS: OXYTOCIN 30 UNITS/LR 500 ML IV SCH ×8 (00:08→23:33)
[2017-01-22] MEDS: KETOROLAC 30 MG INJ IV PRN (00:56)
[2017-01-22] MEDS: MAGNESIUM SULFATE 20 GM/500 ML 500 ML IV SCH (06:28)
[2017-01-22] MEDS: SENNA/DOCUSATE NA (8.6MG/50MG) TAB PO SCH ×2 (09:19→22:16)
[2017-01-22 09:29] LABS: BASOPHILS % 0.4 % (0.0-2.0); EOSINOPHILS # 0.1 10^3/ul (0.0-0.5); EOSINOPHILS % 0.5 % (0.0-7.0); HEMATOCRIT 36.2 % (37.0-47.0); LYMPHOCYTES # 1.3 10^3/ul (0.8-2.9); LYMPHOCYTES % 12.9 % (15.0-51.0); MEAN CORPUSCULAR HEMOGLOBIN 28.7 pg (29.0-33.0); MEAN CORPUSCULAR HGB CONC 33.1 g/dl (32.0-37.0); MEAN CORPUSCULAR VOLUME 86.6 fl (82.0-101.0); MEAN PLATELET VOLUME 9.3 fl (7.4-10.4); MONOCYTE # 0.9 10^3/ul (0.3-0.9); MONOCYTES % 8.9 % (0.0-11.0); NEUTROPHILS % 76.1 % (39.0-77.0); PLATELET COUNT 254 10^3/UL (140-415); RED BLOOD COUNT 4.18 10^6/ul (4.20-5.40); RED CELL DISTRIBUTION WIDTH 13.7 % (11.5-14.5); WHITE BLOOD COUNT 10.3 10^3/ul (4.8-10.8)
[2017-01-22] MEDS ORDERED: MAGNESIUM SULFATE 20 GM/500 ML 500 ML IV SCH (12:00)
--- NOTE | 2017-01-22 12:45 | PN ---
Date/Time of Note Date/Time of Note DATE: 01/22/17 TIME: 12:42 OB Subjective Subjective Subjective Post C section day 1 Doing Well Afebrile Blood pressure under fairly good control will continue mag sulfate for few more hours and will DC it her blood glucose is also within normal limits Ambulatory Chest Clear Breasts are soft , Nipples are intact Abdomen is soft Fundus is firm Moderate amount of lochia Incision is clean ,No evidence of infection No calf tenderness No ankle edema Laboratory Tests Test 01/21/17 18:03 01/21/17 21:03 01/22/17 08:12 01/22/17 08:59 Magnesium Level 4.3mg/dl 4.7mg/dl Bedside Glucose 104mg/dL 99mg/dL White Blood Count 10.310^3/ul Red Blood Count 4.1810^6/ul Hemoglobin 12.0g/dl Hematocrit 36.2% Mean Corpuscular Volume 86.6fl Mean Corpuscular Hemoglobin 28.7pg Mean Corpuscular Hemoglobin Concent 33.1g/dl Red Cell Distribution Width 13.7% Platelet Count 31592^3/UL Mean Platelet Volume 9.3fl Neutrophils % 76.1% Lymphocytes % 12.9% Monocytes % 8.9% Eosinophils % 0.5% Basophils % 0.4% Nucleated Red Blood Cells % 0.0/100WBC Neutrophils # (Manual) 7.810^3/ul Lymphocytes # 1.310^3/ul Monocytes # 0.910^3/ul Eosinophils # 0.110^3/ul Basophils # 0.010^3/ul Nucleated Red Blood Cells # 0.010^3/ul Test 01/22/17 11:34 Bedside Glucose 91mg/dL Current Medications Medications (Trade) Dose Ordered Sig/Noreen Route PRN Reason Start Time Stop Time Status Last Admin Dose Admin Lactated Ringer's (Lr) 1,000 ml @ 125 mls/hr Q8H IV 01/19/17 15:49 01/21/17 15:42 DC 01/21/17 06:34 Butorphanol Tartrate (Stadol) 2 mg Q2H PRN IV PAIN 01/19/17 16:00 01/21/17 15:42 DC Lidocaine 30 ml 30 ml ONCE PRN INJ EPISIOTOMY/TEARING 01/19/17 16:00 01/21/17 15:42 DC Oxytocin/Lactated Ringer's 500 ml @ 125 mls/hr ONCE -MAY REPEAT X1 IV 01/19/17 16:00 01/21/17 15:42 DC 01/21/17 12:25 Oxytocin/Lactated Ringer's 500 ml @ 125 mls/hr ONCE IV 01/19/17 16:00 01/21/17 15:42 DC Ibuprofen 600 mg 600 mg ONCE PRN PO Mild Pain (Pain Score 1-3) 01/19/17 16:00 01/21/17 15:42 DC Lactated Ringer's 1,000 ml @ 2,000 mls/hr Q30M PRN IV PRE-EPIDURAL BOLUS 01/19/17 15:49 01/21/17 15:42 DC Oxytocin/Lactated Ringer's 500 ml @ 0 mls/hr ONCE PRN IV For Hemorrhage Management 01/19/17 16:00 01/21/17 15:42 DC Methylergonovine Maleate (Methergine) 0.2 mg ONCE PRN IM VAGINAL BLEEDING 01/19/17 16:00 01/21/17 08:19 DC Carboprost Tromethamine (Hemabate) 250 mcg ONCE PRN IM VAGINAL BLEEDING 01/19/17 16:00 01/21/17 08:18 DC Misoprostol (Cytotec) 1,000 mcg ONCE PRN [place] VAGINAL BLEEDING 01/19/17 16:00 01/21/17 08:19 DC Betamethasone Acet/Betameth SodPhos (Celestone Soluspan) 12 mg Q12 IM 01/19/17 16:00 01/19/17 21:01 DC 01/20/17 04:52 Ferrous Sulfate (Ferrous Sulfate (Ec)) 325 mg DAILY PO 01/20/17 09:00 01/20/17 16:58 DC 01/20/17 09:05 Glyburide (Micronase) 2.5 mg WITH DINNER PO 01/19/17 17:35 01/20/17 16:58 DC 01/19/17 17:14 Glyburide (Micronase) 5 mg QHS PO 01/19/17 21:00 01/20/17 16:57 DC 01/19/17 21:04 Prenat Multivit/ Supervisor Wound/Iron/Folic Ac () 1 tab DAILY PO 01/20/17 09:00 01/20/17 16:57 DC 01/20/17 09:05 Diagnostic Test (Pha) (Accu-Chek) 1 ea FBSPP XX 01/19/17 19:35 01/20/17 16:57 DC 01/20/17 06:24 Miscellaneous Information (* Miscellaneous Pharmacy Order) 1 ea OB HYPOGLYCEMIA ONCE XX 01/19/17 16:00 01/19/17 16:05 DC Miscellaneous Information 1 ea 1 ea ONCE ONCE XX 01/19/17 16:00 01/19/17 16:05 DC Magnesium Sulfate 100 ml @ 25 mls/hr ONCE ONCE IVPB 01/19/17 16:00 01/19/17 19:59 DC 01/19/17 16:41 Magnesium Sulfate 100 ml @ 200 mls/hr ONCE ONCE IV 01/19/17 16:00 01/19/17 16:29 UNV Magnesium Sulfate (Magnesium Sulfate 20 Gm/500 ml) 500 ml @ 50 mls/hr Q10H IV 01/19/17 15:57 01/22/17 06:28 Miscellaneous Information 1 ea NOTE XX 01/19/17 16:30 01/21/17 15:42 DC Glucose (Glutose) 15 gm Q15M PRN PO DECREASED GLUCOSE 01/19/17 16:30 01/21/17 15:42 DC Glucose (Glutose) 22.5 gm Q15M PRN PO DECREASED GLUCOSE 01/19/17 16:30 01/21/17 15:42 DC Dextrose (D50w Syringe) 25 ml Q15M PRN IV DECREASED GLUCOSE 01/19/17 16:30 01/21/17 15:42 DC Dextrose (D50w Syringe) 50 ml Q15M PRN IV DECREASED GLUCOSE 01/19/17 16:30 01/21/17 15:42 DC Glucagon (Glucagen) 1 mg Q15M PRN IM DECREASED GLUCOSE 01/19/17 16:30 01/21/17 15:42 DC Glucose (Glutose) 15 gm Q15M PRN BUCCAL DECREASED GLUCOSE 01/19/17 16:30 01/21/17 15:42 DC Acetaminophen (Tylenol Tab) 650 mg Q4H PRN PO PAIN AND OR ELEVATED TEMP 01/19/17 21:30 01/21/17 15:42 DC 01/20/17 02:11 Insulin Aspart (Novolog Insulin Pen) Check Blood gluc... Q4 SC 01/20/17 01:00 01/21/17 15:42 DC Docusate Sodium 100 mg 100 mg HS PO 01/20/17 21:00 01/20/17 21:00 DC Oxytocin/Lactated Ringer's 500 ml @ 0 mls/hr Q0M IV 01/20/17 11:00 01/21/17 15:42 DC 01/20/17 11:21 Ondansetron HCl (Zofran Inj) 4 mg Q4H PRN IV NAUSEA AND/OR VOMITING 01/21/17 04:00 01/21/17 05:16 Famotidine 20 mg 20 mg ONCE ONCE IV 01/21/17 04:00 01/21/17 04:01 DC 01/21/17 03:45 Cefazolin Sodium/ Dextrose 50 ml @ 100 mls/hr ONCE IV 01/21/17 08:30 01/21/17 15:42 DC Oxytocin/Lactated Ringer's 500 ml @ 0 mls/hr ONCE PRN IV For Hemorrhage Management 01/21/17 08:30 01/21/17 15:42 DC Methylergonovine Maleate (Methergine) 0.2 mg ONCE PRN IM VAGINAL BLEEDING 01/21/17 08:30 01/21/17 15:42 DC Carboprost Tromethamine (Hemabate) 250 mcg ONCE PRN IM VAGINAL BLEEDING 01/21/17 08:30 01/21/17 15:42 DC Misoprostol (Cytotec) 1,000 mcg ONCE PRN [place] VAGINAL BLEEDING 01/21/17 08:30 01/21/17 15:42 DC Citric Acid/ Sodium Citrate (Bicitra) 30 ml ONCE ONCE PO 01/21/17 08:38 01/21/17 08:40 DC 01/21/17 08:53 Ondansetron HCl (Zofran Inj) 4 mg ONCE STAT IV 01/21/17 08:38 01/21/17 08:40 DC 01/21/17 08:53 Morphine Sulfate (Duramorph) 10 mg STK-MED ONCE .ROUTE 01/21/17 10:56 01/21/17 10:57 DC Phenylephrine HCl (Satinder-Synephrine Inj Syg) 500 mcg STK-MED ONCE .ROUTE 01/21/17 10:57 01/21/17 10:58 DC Phenylephrine HCl (Satinder-Synephrine Inj Syg) 500 mcg STK-MED ONCE .ROUTE 01/21/17 11:19 01/21/17 11:20 DC Phenylephrine HCl (Satinder-Synephrine Inj Syg) 500 mcg STK-MED ONCE .ROUTE 01/21/17 11:23 01/21/17 11:24 DC Phenylephrine HCl (Satinder-Synephrine Inj Syg) 500 mcg STK-MED ONCE .ROUTE 01/21/17 11:40 01/21/17 11:41 DC Diphenhydramine HCl (Benadryl) 50 mg STK-MED ONCE .ROUTE 01/21/17 12:38 01/21/17 12:39 DC Albuterol (Proventil 0.083% (Neb)) 2.5 mg PACU ORDER PRN HHN WHEEZING 01/21/17 13:30 01/21/17 15:43 DC Diphenhydramine HCl (Benadryl) 25 mg Q6H PRN IV ITCHING 01/21/17 13:30 01/21/17 19:30 DC Diphenhydramine HCl (Benadryl) 25 mg PACU ORDER PRN IV PRURITUS 01/21/17 13:30 01/21/17 15:43 DC 01/21/17 14:43 Fentanyl (Sublimaze) 25 mcg PACU ORDER PRN IV MILD PAIN LEVEL 1-3 01/21/17 13:30 01/21/17 15:43 DC Fentanyl (Sublimaze) 50 mcg PACU ODER PRN IV MODERATE PAIN LEVEL 4-6 01/21/17 13:30 01/21/17 15:43 DC Fentanyl (Sublimaze) 75 mcg PACU ORDER PRN IV SEVERE PAIN LEVEL 7-10 01/21/17 13:30 01/21/17 15:43 DC Hydromorphone HCl (Dilaudid (Rec)) 0.2 mg PACU ORDER PRN IV MILD PAIN LEVEL 1-3 01/21/17 14:00 01/21/17 15:43 DC Hydromorphone HCl (Dilaudid (Rec)) 0.4 mg PACU ORDER PRN IV MODERATE PAIN LEVEL 4-6 01/21/17 13:30 01/21/17 15:43 DC Hydromorphone HCl (Dilaudid (Rec)) 0.6 mg PACU ORDER PRN IV SEVERE PAIN LEVEL 7-10 01/21/17 13:31 01/21/17 15:43 DC Hydromorphone HCl (Dilaudid) 0.2 mg Q3H PRN IV PAIN LEVEL 1-5 01/21/17 14:00 Hydromorphone HCl (Dilaudid) 0.4 mg Q3H PRN IV PAIN LEVEL 6-10 01/21/17 14:00 Ketorolac Tromethamine (Toradol) 30 mg Q6H PRN IV PAIN 01/21/17 14:00 01/22/17 11:00 DC 01/22/17 00:56 Ketorolac Tromethamine (Toradol) 30 mg PACU ORDER PRN IV FOR PAIN AFTER IV NARCOTIC MED 01/21/17 13:33 01/21/17 15:43 DC Meperidine HCl (Demerol) 25 mg PACU ORDER PRN IV POST-OP RIGORS 01/21/17 13:34 01/21/17 15:43 DC Metoclopramide HCl (Reglan) 10 mg PACU ORDER PRN IV NAUSEA AND/OR VOMITING 01/21/17 13:35 01/21/17 15:43 DC Naloxone HCl (Narcan) 0.1 mg Q2M PRN IV FOR RESP RATE 8 OR LESS 01/21/17 14:00 Ondansetron HCl (Zofran Inj) 4 mg Q6H PRN IV NAUSEA AND/OR VOMITING 01/21/17 14:00 Ondansetron HCl (Zofran Inj) 4 mg PACU ORDER PRN IV NAUSEA AND/OR VOMITING 01/21/17 13:36 01/21/17 15:43 DC Oxycodone/ Acetaminophen (Percocet (5/ 325)) 1 tab PACU ORDER PRN PO PAIN LEVEL 1-5 01/21/17 13:36 01/21/17 15:43 DC Zolpidem Tartrate (Ambien) 5 mg HS MAY REPEAT X 1 PRN PO INSOMNIA 01/21/17 14:00 01/22/17 13:59 Acetaminophen/ Hydrocodone Bitart ([place] (5/325)) 1 tab Q4H PRN PO PAIN LEVEL 4-6 01/21/17 16:00 Acetaminophen/ Hydrocodone Bitart ([place] (5/325)) 2 tab Q4H PRN PO PAIN LEVEL 7-10 01/21/17 16:00 Oxycodone/ Acetaminophen (Percocet (5/ 325)) 1 tab Q4H PRN PO PAIN LEVEL 4-6 01/21/17 16:00 Oxycodone/ Acetaminophen (Percocet (5/ 325)) 2 tab Q4H PRN PO PAIN LEVEL 7-10 01/21/17 16:00 Ibuprofen (Motrin) 600 mg Q6 PO 01/22/17 12:00 Simethicone (Mylicon) 160 mg Q8H PRN PO DISTENSION/GAS/BLOATING 01/21/17 16:00 Senna/Docusate Sodium (Senokot-S) 1 tab BID PO 01/22/17 09:00 01/22/17 09:19 Lanolin (Bet-B-Tktowp) 1 applic BEDSIDE MEDICATION PRN TOP BEDSIDE FOR YASMEEN TO NIPPLES 01/21/17 16:00 01/22/17 09:24 Diphtheria/ Tetanus/Acell Pertussis 0.5 ml 0.5 ml ONCE ONCE IM* 01/24/17 09:00 01/24/17 09:01 Oxytocin/Lactated Ringer's 500 ml @ 0 mls/hr ONCE PRN IV For Hemorrhage Management 01/21/17 16:00 Methylergonovine Maleate (Methergine) 0.2 mg ONCE PRN IM VAGINAL BLEEDING 01/21/17 16:00 Carboprost Tromethamine (Hemabate) 250 mcg ONCE PRN IM VAGINAL BLEEDING 01/21/17 16:00 Misoprostol 1000 mcg 1,000 mcg ONCE PRN [place] VAGINAL BLEEDING 01/21/17 16:00 Cefazolin Sodium 50 ml @ 100 mls/hr ONCE IVPB 01/21/17 16:00 01/21/17 16:29 DC 01/21/17 16:35 Oxytocin/Lactated Ringer's 500 ml @ 125 mls/hr Q4H IV 01/21/17 15:33 01/22/17 06:28 New born is doing well, Breast feeding OMARI SANTILLAN MD Jan 22, 2017 12:45
[2017-01-22] MEDS: IBUPROFEN 600 MG TAB PO SCH ×2 (13:12→18:04)
[2017-01-22] MEDS: OXYCODONE/ACETAMINOPHEN (5/325) TAB PO PRN (13:58)
[2017-01-23] MEDS: OXYTOCIN 30 UNITS/LR 500 ML IV SCH ×3 (03:33→07:33)
[2017-01-23 04:00] VITALS: BP 133/81; PULSE 19; RESP 18
[2017-01-23] MEDS: IBUPROFEN 600 MG TAB PO SCH ×4 (06:02→17:52)
[2017-01-23 08:20] VITALS: BP 120/70; PULSE 88; RESP 18
[2017-01-23] MEDS: SENNA/DOCUSATE NA (8.6MG/50MG) TAB PO SCH ×2 (09:38→21:00)
--- NOTE | 2017-01-23 10:46 | PN ---
Date/Time of Note Date/Time of Note DATE: 01/23/17 TIME: 10:45 OB Subjective Subjective Subjective Post day 2 Vital signs are stable Abdomen soft Incision healing well Bowel sounds present No bowel movement enema recommended OZZY MARTIN MD Jan 23, 2017 10:46
[2017-01-23] MEDS ORDERED: NA PHOSPHATE/BIPHOS 133 ML ENEMA PR ONE (11:00)
[2017-01-23 12:35] VITALS: BP 119/71; PULSE 82; RESP 19
[2017-01-23 16:16] VITALS: BP 119/71; PULSE 82; RESP 18
[2017-01-23 20:00] VITALS: BP 123/70; PULSE 87; RESP 18
[2017-01-23] MEDS: OXYCODONE/ACETAMINOPHEN (5/325) TAB PO PRN (23:02)
[2017-01-24] MEDS: IBUPROFEN 600 MG TAB PO SCH ×3 (02:25→13:36)
[2017-01-24 04:00] VITALS: BP 117/73; PULSE 83; RESP 18
[2017-01-24 08:00] VITALS: BP 140/82; PULSE 73; RESP 20
[2017-01-24] MEDS: SENNA/DOCUSATE NA (8.6MG/50MG) TAB PO SCH (08:31)
[2017-01-24] MEDS: OXYCODONE/ACETAMINOPHEN (5/325) TAB PO PRN ×2 (08:32→13:35)
[2017-01-24] MEDS ORDERED: DIPHTH/TET/ACEL PERTUSS (ADULT) 0.5 ML VIAL IM* ONE (09:00)
[2017-01-24 12:00] VITALS: BP 124/74; PULSE 88; RESP 20
--- NOTE | 2017-01-24 15:21 | DS ---
Date/Time of Note Date/Time of Note DATE: 01/24/17 TIME: 15:16 Discharge Summary Admission/Discharge Info Admit Date/Time Jan 19, 2017 at 15:20 Discharge Date/Time January 24 at 1515 Discharge Diagnosis Date 3 post primary Patient Condition: Good Procedures Primary for -induced hypertension Hx of Present Illness complicated with preeclampsia Hospital Course Satisfactory uneventful Home Meds Reported Medications Multivit/Min/Fol Ac/Iron/Pren* ( S*) 1 Tab Tab, 1 TAB PO DAILY, TAB 11/03/16 Discontinued Reported Medications Glyburide* (Glyburide*) 5 Mg Tablet, 5 MG PO QHS, #30 TAB 01/09/17 Glyburide* (Glyburide*) 2.5 Mg Tablet, 2.5 MG PO WITH DINNER, #30 TAB 01/09/17 Ferrous Sulfate* (Ferrous Sulfate*) 325 Mg Tabec, 325 MG PO DAILY, TAB 01/09/17 Follow-up Plan Post instructions given recommended to make appointment in 1 week for post check Primary Care Provider [facility] Time spent on discharge: < 30 minutes OZZY MARTIN MD Jan 24, 2017 15:21
--- NOTE | 2017-01-26 07:48 | CONS ---
Date/Time of Note Date/Time of Note DATE: 01/26/17 TIME: 07:47 Consultation Date/Type/Reason Admit Date/Time Jan 19, 2017 at 15:20 Initial Consult Date 01/22/17 Type of Consultation: Anesthesiology Reason for Consultation follow up 24 HR Interval Summary Free Text/Dictation Pt seen and examined at bedside on 01/22/17 is s/p primary c/s. Pt received spinal duramorph for post-op pain control without complications. She denies any N/V/C/D/SIMONS/Numbness in extremities. Will follow. Constitutional: improved, no complaints Exam/Review of Systems Vital Signs Vitals Vital Signs Date Time Temp Pulse Resp B/P Pulse Ox O2 Delivery O2 Flow Rate FiO2 01/24/17 12:00 98.4 88 20 124/74 Room Air 01/22/17 11:00 98 01/22/17 11:00 21 Results Result Diagram: 01/22/17 0859 CLARISSA MARIANO Jan 26, 2017 07:48
== END 2017-01-24 15:45 | disposition home or self-care (01) | DRG 765 ==
LOC: OBT 11:15 → L-D 11:15 → OBT 15:20 → L-D 15:20 → PP1 01-21 15:31
PROVIDERS: ADMIT Obstetrics & Gynecology; ATTEND Obstetrics & Gynecology
PROC: 10D00Z1 Extraction of Products of Conception, Low, Open Approach (ICD-10-PCS; principal; 2017-01-21 11:30)
DX: O14.94 Unspecified pre-eclampsia, complicating childbirth (principal); Z68.43 Body mass index [BMI] 50.0-59.9, adult; Z37.0 Single live birth; O24.425 Gestational diabetes mellitus in childbirth, controlled by oral hypoglycemic drugs; Z3A.36 36 weeks gestation of pregnancy; O99.214 Obesity complicating childbirth; E66.01 Morbid (severe) obesity due to excess calories
CPT/HCPCS: 36415; 62319; 76815; 76818; 80053; 81001; 82575; 82962; 83735; 84156; 84560; 85025; 85610; 85730; 86592; 86900; 86901; 87086; 87340; 90715; 94760; 99464; G0463; J0690; J0702; J1200; J1815; J1885; J2274; J2370; J2405; J2590; J3475; J7120